=== PATIENT | female | born 1980 | race Caucasian/White ===

== ENCOUNTER 2022-09-15 09:35 | Outpatient (CLI) | payer OTHER, SELFPAY ==
--- NOTE | 2022-09-15 09:45 | CRLHL7_ITS ---
For Patients: As a result of the Cures Act, medical imaging exams and procedure reports are released immediately into your electronic medical record. You may view this report before your referring provider. If you have questions, please contact your health care provider. DIGITAL DIAGNOSTIC BILATERAL MAMMOGRAM USING TOMOSYNTHESIS AND COMPUTER-AIDED DETECTION LEFT BREAST ULTRASOUND CLINICAL HISTORY: LEFT breast lump. COMPARISON: 05/14/2021, 04/24/2020, 02/01/2019, 09/29/2017. TECHNIQUE: Digital BILATERAL mammogram in four projections. Tomosynthesis and CAD utilized. Real-time ultrasound imaging of LEFT breast with imaging documentation. BREAST COMPOSITION: The breasts are heterogeneously dense, which may obscure small masses. FINDINGS: 3D CC/MLO BILATERAL mammogram images submitted. No suspicious masses or architectural distortion. No adenopathy or suspicious calcifications. Targeted LEFT breast ultrasound performed in the area of concern at 12 o`clock 3 cm from the nipple. Normal fibroglandular tissue noted. No suspicious findings. IMPRESSION: Normal BILATERAL 3D mammograms and normal targeted LEFT breast ultrasound. No evidence of malignancy. RECOMMENDATIONS: Annual BILATERAL screening mammography. Results and recommendations discussed with the patient. BI-RADS Category 2: Benign A lay language report of this examination will be provided to the patient. Dictated by Alex Wells MD @ 09/15/2022 12:48:29 PM /Dictated by: Alex Wells MD @ 09/15/2022 12:48:00 PM (Electronically Signed)
--- NOTE | 2022-09-15 10:15 | CRLHL7_ITS ---
For Patients: As a result of the Cures Act, medical imaging exams and procedure reports are released immediately into your electronic medical record. You may view this report before your referring provider. If you have questions, please contact your health care provider. PLEASE SEE DIGITAL DIAGNOSTIC BILATERAL MAMMOGRAM PERFORMED SAME DAY CRL:[email or web address] brannon/Dictated by: Alex Wells MD @ 09/15/2022 12:48:00 PM (Electronically Signed)
== END 2022-09-15 09:36 | disposition home or self-care (01) ==
LOC: MAMMO 09:36
PROVIDERS: PCP Family Medicine; Visit Provider Family Medicine
DX: N63.20 Unspecified lump in the left breast, unspecified quadrant (principal)
CPT/HCPCS: 76642; 77066; G0279

== ENCOUNTER 2025-02-27 09:24 | Outpatient (CLI) | payer BC, SELFPAY | END 2025-02-27 09:25 | disposition home or self-care (01) | PROVIDERS: Visit Provider Obstetrics & Gynecology | DX: Z13.6 Encounter for screening for cardiovascular disorders (principal); Z13.29 Encounter for screening for other suspected endocrine disorder | CPT/HCPCS: 80061; 84443; 86382 ==

== ENCOUNTER 2025-04-24 09:11 | Outpatient (CLI) | payer BC, SELFPAY ==
--- NOTE | 2025-04-24 10:50 | P.ANES_ITS ---
Anesthesia Charges Start Date/Time Anesthesia Start Date: 04/24/25 Anesthesia Start Time: 10:14 Stop Date/Time Anesthesia Stop Date: 04/24/25 Anesthesia Stop Time: 10:45 Coding CPT Codes CPT Codes: ANES LWR INTST NDNV NOS - [id number] ([id number]) P1 - NORMAL HEALTHY PATIENT, QK - ASSOCIATE SOFTWARE DEVELOPMENT ENGINEER 2-4 CNCRNT ANES PROC
--- NOTE | 2025-04-24 10:50 | W.ANESCHARGE ---
Anesthesia Charges Start Date/Time Anesthesia Start Date: 04/24/25 Anesthesia Start Time: 10:14 Stop Date/Time Anesthesia Stop Date: 04/24/25 Anesthesia Stop Time: 10:45 Coding CPT Codes CPT Codes: ANES LWR INTST NDNJ NOS - [id number] ([id number]) P1 - NORMAL HEALTHY PATIENT, QK - ENTRY LEVEL PARALEGAL 2-4 CNCRNT ANES PROC
--- NOTE | 2025-04-24 11:41 | P.ANES_ITS ---
Anesthesia Charges Start Date/Time Anesthesia Start Date: 04/24/25 Anesthesia Start Time: 10:14 Stop Date/Time Anesthesia Stop Date: 04/24/25 Anesthesia Stop Time: 10:45 Coding CPT Codes CPT Codes: ARISTIDES LWR INTST NDNJ NOS - [id number] ([id number]) P1 - NORMAL HEALTHY PATIENT, QK - PRINTED CIRCUIT BOARD DESIGNER 2-4 CNCRNT ANES PROC, QX - MERCHANDISE STOCKER SVC W/ MED DIRECTION
--- NOTE | 2025-04-24 11:41 | W.ANESCHARGE ---
Anesthesia Charges Start Date/Time Anesthesia Start Date: 04/24/25 Anesthesia Start Time: 10:14 Stop Date/Time Anesthesia Stop Date: 04/24/25 Anesthesia Stop Time: 10:45 Coding CPT Codes CPT Codes: ARISTIDES LWR INTST NDID NOS - [id number] ([id number]) P1 - NORMAL HEALTHY PATIENT, QK - PLUG PASTER 2-4 CNCRNT ANES PROC, QX - NDT INSPECTOR SVC W/ MED DIRECTION
== END 2025-04-24 09:12 | disposition home or self-care (01) ==
LOC: OP CLINIC 09:12
PROVIDERS: Visit Provider Surgery
DX: Z12.11 Encounter for screening for malignant neoplasm of colon (principal); Z83.719 Family history of colon polyps, unspecified; D12.3 Benign neoplasm of transverse colon; D12.8 Benign neoplasm of rectum
CPT/HCPCS: 00811; 00812; 45385; 88305; J2405; J2704

== ENCOUNTER 2025-05-29 14:57 | Outpatient (CLI) | payer BC, SELFPAY ==
--- NOTE | 2025-05-29 15:20 | CRLHL7_ITS ---
For Patients: As a result of the Century Cures Act, medical imaging exams and procedure reports are released immediately into your electronic medical record. You may view this report before your referring provider. If you have questions, please contact your health care provider. INDICATION: BILATERAL SCREENING MAMMOGRAM, ASYMPTOMATIC 45 Y/O FEMALE COMPARISON: 09/15/2022, 05/14/2021, 04/24/2020 TECHNIQUE: Digital mammogram in CC and MLO projections including computer-aided detection (CAD) and tomosynthesis. BREAST COMPOSITION: The breasts are heterogeneously dense, which may obscure small masses. FINDINGS: No suspicious findings. ASSESSMENT: BI-RADS 2 Benign RECOMMENDATION: Annual screening mammogram. A lay language report of this examination will be provided to the patient. Dictated by: Alex Wells MD @ 05/30/2025 12:05:43 (Electronically Signed)
== END 2025-05-29 14:58 | disposition home or self-care (01) ==
LOC: MAMMO 14:57
PROVIDERS: PCP Obstetrics & Gynecology; Visit Provider Obstetrics & Gynecology
DX: Z12.31 Encounter for screening mammogram for malignant neoplasm of breast (principal); R92.333 Mammographic heterogeneous density, bilateral breasts
CPT/HCPCS: 77063; 77067